=== PATIENT | female | born 1980 | race Caucasian/White ===

== ENCOUNTER 2018-10-22 21:09 | Emergency (ER) | payer OTHER ==
[~2018-10-22] VITALS: Ht 165.1 cm; Wt 59.9 kg
[~2018-10-22 21:09] MED LIST: PROTONIX40 MG PO
[2018-10-22] MEDS ORDERED: VITAMIN D5000 UNIT PO (21:25)
== END 2018-10-22 23:45 | disposition home or self-care (01) ==
LOC: ED 21:09
DX: G43.809 Other migraine, not intractable, without status migrainosus (principal); Z88.5 Allergy status to narcotic agent; Z91.012 Allergy to eggs; Z79.899 Other long term (current) drug therapy
CPT/HCPCS: 70450; 80053; 84703; 85025; 96374; 96375; 99284-25; J1200; J2765; J3030

== ENCOUNTER 2020-06-29 16:10 | Observation (INO) | payer OTHER ==
[~2020-06-29] VITALS: Ht 165.1 cm; Wt 78.2 kg
[~2020-06-29 16:10] MED LIST changes: +ABRAXANE100 MG IV; +AUGMENTIN 875-1 EACH PO; +BACTRIM 400-801 EACH PO; +CLARITIN10 M2 PO; +CLINDAMYCIN 1%-60 GM; +DEXAMETHASONE1 MG PO; +GARLIC1 EAC1 PO; +IBUPROFEN600 MG PO; +MAGNESIUM ALUMIN1 GM MISC; +MAGNESIUM CITR100 GM MISC; +NAPROXEN SODIU220 MG PO; +OLANZAPINE5 MG PO; +OMEPRAZOLE20 MG PO; +ONDANSETRON ODT8 MG PO; +OXYCODONE HCL5 MG PO; +PACLITAXEL6 MG/1 ML IV; +RIZATRIPTAN5 MG PO; +TYLENOL325 MG PO; +ULTRAM50 MG PO; +VITAMIN C500 M1 PO; +VITAMIN D5000 UNIT PO; +ZOLADEX3.6 MG SUB-Q
[2020-06-29] MEDS ORDERED: MOBIC7.5 MG PO (18:11)
[2020-06-29] MEDS ORDERED: GABAPENTIN600 MG PO (18:11)
--- NOTE | 2020-06-29 20:40 | NUR ---
PT ARRIVED TO CCU VIA STRETCHER WITH MOTHER AND PERSONAL BELONGINGS. PT WAS ALERT AND ORIENTED UPON ARRIVAL. PT HAD TO BE ASSISTED ON TO CCU BED. PT HAD SWELLING AROUND EYES AND AND LIPS. PT BREATHING REGULAR AND PT REPORTS NO DYSPNEA. PT REPORTS PAIN ON HER LEFT PELVIC AREA. PRN TYLENOL ADMINISTERED FOR PAIN. ORDERED MEDICATIONS ADMINSITERD IV AND PT STARTED ON HER IV FLUIDS. DURING ASSESSMENT PT HAD TO VOID. PT ABLE TO GET UP ONTO BEDSIDE COMMODE WITH ASSISTANCE. BLOOD NOTED IN URINE, MOTHER STATED PT WAS ON HER MENSES. PT ABLE TO TAKE SIPS OF JUICE WITHOUT DIFFICULTY AND STATES IT DOES NOT BOTHER HER THROAT. PT REPORTS NO FURTHER NEEDS, PASTORAL CARE IN TO TALK TO FAMILY PER THEIR REQUEST. MOTHER, PT, AND SLITTER CREASER SLOTTER HELPER IN ROOM. CALL LIGHT WITHIN REACH, BED IN LOWEST POSITION, PT CPAP SET UP IN ROOM BY RT. WILL CONTINUE PLAN OF CARE.
--- NOTE | 2020-06-29 21:18 | NUR ---
ORLIN MADISON MENTIONED PT IN CCU WOULD LIKE A PRINTING SPECIALIST VISIT RN WAS FINISHING UP CHARTING WITH PT WHEN I ARRIVED, I INTRODUCED MYSELF AND PT'S MOTHER INFORMED ME OF THE PT'S CIRCUMSTANCES. BOTH PT AND MOTHER WERE IN GOOD SPIRITS AND RELIEVED AT HER GOOD RECOVERY FROM REACTION. PT WAS SOMEWHAT DISORIENTED DUE TO MEDICATION ON BOARD, BUT SHE WAS VERY COHERENT TO HER SITUATION AND MY VISIT. WE HAD VERY LIGHTHEARTED SMALL TALK. BOTH PT AND MOTHER ARE STRONG IN THEIR DELMY AND HAPPY TO SHARE OF THEIR BELIEF IN GOD. I OFFERED PRAYER WHICH THEY BOTH HAPPILY ACCEPTED. WE SHARED A FEW MORE MUTUAL WORDS OF ENCOURAGEMENT AND I BID THEM GOOD NIGHT.
--- NOTE | 2020-06-29 21:25 | NUR ---
WAS NOTIFIED BY PT'S MOTHER THAT PT WAS FEELING DIZZY. PT RESTING IN BED AT THIS TIME, VITAL SIGNS STABLE, BP:111/60(77) HR:71. PT REPORTS THAT SHE "SOMETIMES" HAS ISSUES WITH HER BLOOD SUGAR AND THAT SHE HASN'T EATEN SINCE PREPARING FOR HER CT SCAN. BLOOD SUGAR:130, PT DRINKING APPLE JUICE. UPDATED PT'S PRIMARY RN, JEFF.
--- NOTE | 2020-06-29 22:10 | NUR ---
THIS RN IN TO ADMINISTER IV MEDICATIONS (SEE MAR). PT LAYING IN BED SLEEPING, MOTHER AT BEDSIDE CHAIR. MOTHER STATED PT IS OFF HER BIPAP SHE COULD NOT SLEEP WITH IT TONIGHT IT WAS TOO UNCOMFORTABLE. PT SPO2 AT 90-93%, RR AT 17. PT WOKE UP BRIEFLY AND ASKED FOR A SIP OF JUICE. PT REPORT NO FURTHER NEEDS WHEN ASKED, WILL CONTINUE PLAN OF CARE.
--- NOTE | 2020-06-29 23:30 | NUR ---
THIS RN IN TO ASSESS PT. PT STATED SHE NEEDED TO USE THE COMMODE. PT HELPED UP AND PT ABLE TO SHUFFLE WALK TO COMMODE. PT WAS ABLE TO VOID AND HAVE A BM. PT THEN ASKED IF SHE COULD TAKE HER HOME MEDICATIONS. DR PARKER WAS CALLED TO INFORM OF THE MEDICATIONS. NEW ORDERS GIVEN FOR ADMINISTRATION OF GABAPENTIN. AFTER PHONECALL PT STATED SHE WAS ALSO HAVING ABDOMINAL/PELVIC PAIN. PT GIVEN PRN PO TYLENOL FOR PAIN. PT REPORTS NO FURTHER NEEDS AT THIS TIME AND IS BACK IN BED. PT PUT ON HER HOME CPAP AND STATES SHE IS TIRED AND WILL GO BACK TO SLEEP. CALL LIGHT IN REACH, BED IN LOWEST POSITION. WILL CONTINUE PLAN OF CARE.
--- NOTE | 2020-06-30 02:07 | NUR ---
PT AWAKE, ASSISTED TO REACH WATER. STATES IS JUST TIRED. CPAP BACK IN PLACE FOR PT TO SLEEP.
--- NOTE | 2020-06-30 03:08 | NUR ---
PT AWAKE, ASSISTED TO BSC, PT VOIDED CLEAR YELLOW URINE. ATTENDS CHANGED PT ON MENSES, LIGHT FLOW. PT WANTING TO KEEEP POST OP PAIN UNDER CONTROL ASKING ABOUT TYLENOL WHICH IS PRESCRIBED AT LOWER STRENGTH HERE. GIVEN 30MG TYLENOL IV FOR POST OP CHEST PAIN AND R ARM PAIN. CPAP BACK IN PLACE.
--- NOTE | 2020-06-30 03:35 | NUR ---
PT REQUESTING TYLENOL FOR CONT PAIN. GIVEN 500MG.
--- NOTE | 2020-06-30 05:03 | NUR ---
AWAKE, STATES IS FEELING RESTLESS. OFFERED CHAIR. PT CHOOSING TO STAY IN BED, HER MOM RUBBING HER LEGS. GIVEN HERBAL TEA. INFORMED THAT STEROIDS CAN MAKE ONE FEEL RESTLESS.
--- NOTE | 2020-06-30 05:29 | NUR ---
RESPONDED TO PT CALL LIGHT. PT NEEDED TO VOID. PT ABLE TO GET OUT OF BED WITH MINIMAL ASSISTANCE. PT'S GAIT WAS WEAK BUT SHE WAS ABLE TO WALK TO BATHROOM IN THE BEDROOM AND VOID GET UP AND WALK BACK AND GET INTO BED. PT REPORTS NO FURTHER NEEDS WHEN ASKED, LAB IN TO DRAW LABS. WILL CONTINUE PLAN OF CARE.
--- NOTE | 2020-06-30 06:47 | NUR ---
THIS RN IN TO ADMINISTER MEDICATIONS (SEE MAR). PT WAS LAYING IN BED AWAKE AND ALERT. PT HAD BEEN TALKING TO HER MOTHER AT THE BEDSIDE. ORDERED MEDICATIONS ADMINISTED, PT REPORTS NO FURTHER NEEDS WHEN ASKED. WILL CONTINUE PLAN OF CARE.
--- NOTE | 2020-06-30 07:30 | NUR ---
RECEIVED REPORT FROM DAYSNJFT RNS. CALL LIGHT ON. pt REQUESTED GABAPENTIN AND ANTIBIOTIC. ASSESSMENT DONE. pt REPORTED PAIN IN HER ANKLES "I'M ALLERGIC TO BEEF AND FOUR DAYS AFTER I EAT IT I GET THIS KIND OF PAIN IN MY ANKLES." SOME SWELLING NOTED AROUND EYES AND IN LEFT ARM. NO RASH NOTED ON ABD. BOWEL TONES ACTIVE. INCISIONS ON BREASTS CDI, DRESSING IN PLACE. pt REPORTED MILD PAIN TO LEFT BREAST INCISION. DISCUSSED PLAN FOR DAY AND MEDICATIONS. CALL LIGHT WITHIN REACH. MOTHER AT BEDSIDE.
--- NOTE | 2020-06-30 08:02 | NUR ---
IN TO GIVE MEDICATIONS. pt REPORTS / PAIN "JUST ENOUGH TO WANT TYLENOL" REQUESTED TO STAY ON Q4H SCHEDULE FOR TYLENOL. MOTHER AT BEDSIDE. NO FURTHER REQUESTS AT THIS TIME. CALL LIGHT WITHIN REACH. DISCUSSED THAT ANTIBIOTIC WILL BE GIVEN SOON PHARMACY VERIFIES IT.
--- NOTE | 2020-06-30 10:06 | NUR ---
IN TO DO DISCHARGE pt REPORTED "MY HEAD FEELS A LITTLE POUNDY, I'D LIKE TO TAKE A NAP FIRST." NO CHANGES FROM PRIOR ASSESSMENT. pt REQUESTED AN HOUR TO DECIDE ABOUT DISCHARGE. PHARMACY IN TO DO DISCHARGE PAPERWORK. CALL LIGHT WITHIN REACH. MOTHER AT BEDSIDE.
--- NOTE | 2020-06-30 11:13 | NUR ---
ROUNDED ON pt. RESTING IN BED WITH EYES CLOSED, RESPIRATIONS REGULAR AND UNLABORED. CALL LIGHT WITHIN REACH.
--- NOTE | 2020-06-30 11:55 | NUR ---
pt VERBALIZED UNDERSTANDING OF ALL DISCHARGE INSTRUCTIONS. ALL QUESTIONS ANSWERED. BOTH IV'S DC'D PER PROTOCOL, WNL. PRESSURE DRESSINGS APPLIED. ALL BELONGS GATHERED BY pt's MOTHER. pt WHEELED FROM UNIT BY THIS RN. AMBULATED TO VEHICLE.
== END 2020-06-30 11:55 | disposition home or self-care (01) ==
LOC: ED 16:10 → CCU 16:11
PROVIDERS: ADMIT Internal Medicine; ATTEND Internal Medicine
DX: T88.6XXA Anaphylactic reaction due to adverse effect of correct drug or medicament properly administered, initial encounter (principal); T50.8X5A Adverse effect of diagnostic agents, initial encounter; K90.0 Celiac disease; Y92.238 Other place in hospital as the place of occurrence of the external cause; Z85.3 Personal history of malignant neoplasm of breast; Z88.5 Allergy status to narcotic agent; Z88.8 Allergy status to other drugs, medicaments and biological substances; Z91.012 Allergy to eggs; Z20.822 Contact with and (suspected) exposure to COVID-19
CPT/HCPCS: 36415; 51798; 76705; 80048; 80053; 83520; 85025; 94640; 96374; 96375; 96376; 99285-25; C9803; G0378; J0171; J1200; J1885; J2405; J2920; J2930; J7030; U0003

== ENCOUNTER 2022-04-18 17:59 | Emergency (ER) | payer OTHER ==
[~2022-04-18] VITALS: Ht 165.1 cm; Wt 68.3 kg
[~2022-04-18 17:59] MED LIST changes: +GABAPENTIN600 MG PO; +MOBIC7.5 MG PO
--- OUTSIDE RECORDS SUMMARY | 2022-04-18 18:02 | XMS ---
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 EGunnar VISIT COUNT (12 MO.) 1 RISA Evans TOTAL 1 NOTE: Visits indicate total known visits. ED/UCC VISIT TRACKING (12 MO.) 04/18/2022 17:59 [facility] [place] TYPE: Emergency COMPLAINT: - RT FOOT INJURY INPATIENT VISIT TRACKING (12 MO.) No inpatient visits to display in this time frame [id number]
[2022-04-18] MEDS ORDERED: GABAPENTIN300 MG PO (20:13)
[2022-04-18] MEDS ORDERED: EPIN0.3P IM (20:14)
== END 2022-04-18 21:27 | disposition home or self-care (01) ==
LOC: ED 17:59
DX: S91.331A Puncture wound without foreign body, right foot, initial encounter (principal); Z23 Encounter for immunization; Z91.048 Other nonmedicinal substance allergy status; Z88.5 Allergy status to narcotic agent; Z91.012 Allergy to eggs; W22.8XXA Striking against or struck by other objects, initial encounter
CPT/HCPCS: 90471; 90715; 99283-25

== ENCOUNTER 2024-01-27 15:00 | Emergency (ER) | payer OTHER ==
[~2024-01-27] VITALS: Ht 165.1 cm; Wt 72.4 kg
[~2024-01-27 15:00] MED LIST changes: +EPIN0.3P IM; +GABAPENTIN300 MG PO
[2024-01-27] MEDS ORDERED: VITAMIN D310 MC4 PO (18:51)
[2024-01-27] MEDS ORDERED: IRON159 MG PO (18:51)
[2024-01-27] MEDS ORDERED: SERTRALINE HCL50 MG PO (18:52)
[2024-01-27] MEDS ORDERED: B COMPLEX1 EACH PO (18:52)
[2024-01-27] MEDS ORDERED: CALCIUM500 MG PO (18:52)
[2024-01-27 20:55] VITALS: BP 121/83
== END 2024-01-27 20:57 | disposition home or self-care (01) ==
LOC: ED 15:00
DX: M71.21 Synovial cyst of popliteal space [Baker], right knee (principal); Z91.041 Radiographic dye allergy status; Z91.09 Other allergy status, other than to drugs and biological substances; Z88.5 Allergy status to narcotic agent; Z88.8 Allergy status to other drugs, medicaments and biological substances; Z79.899 Other long term (current) drug therapy
CPT/HCPCS: 36415; 73560; 85379; 93971; 99284